=== PATIENT | male | born 1985 | race Caucasian/White ===

== ENCOUNTER 2023-03-05 09:57 | Emergency (ER) | payer SELFPAY ==
[2023-03-05] MEDS ORDERED: Lidocaine 2% Viscous Solution 15 ML UD PO ONE (10:44)
[2023-03-05] MEDS ORDERED: Amoxicillin/Clavulanate K 875-125 MG Tab PO ONE (10:44)
[2023-03-05] MEDS ORDERED: Acetaminophen/oxyCODONE 325-10 MG Tab PO ONE (10:47)
[2023-03-05] MEDS ORDERED: Lidocaine 1% 5 ML VIAL INJECT ONE (10:47)
[2023-03-05] MEDS ORDERED: Benzocaine 20% Topical Spray UD MUCMEM ONE (11:00)
== END 2023-03-05 11:26 | disposition home or self-care (01) ==
LOC: MW.ED 09:57
DX: K04.7 Periapical abscess without sinus (principal)
CPT/HCPCS: 64400; 99282; A9270; 99283; J3490

== ENCOUNTER 2023-11-19 14:10 | Emergency (ER) | payer SELFPAY ==
[2023-11-19] MEDS: LORazepam 0.5 MG Tab PO ONE (14:51)
[2023-11-19 14:52] LABS: BASOPHILS ABSOLUTE AUTO 0.04 K/uL (0.00-0.20); BASOPHILS PERCENT AUTO 0.4 % (0.0-1.0); EOSINOPHILS ABSOLUTE AUTO 0.19 K/uL (0.00-0.45); EOSINOPHILS PERCENT AUTO 1.7 % (0.0-6.0); HEMATOCRIT 50.8 % (42.0-52.0); HEMOGLOBIN 17.2 g/dL (14.0-18.0); IMMATURE GRAN ABSOLUTE AUTO 0.02 K/uL (0.00-0.05); IMMATURE GRAN PERCENT AUTO 0.2 % (0.0-0.4); LYMPHOCYTES PERCENT AUTO 16.3 % (24.0-44.0); MEAN CORPUSCULAR HEMOGLOBIN 29.6 pg (28.0-32.0); MEAN CORPUSCULAR HGB CONC 33.9 g/dL (32.0-36.0); MEAN CORPUSCULAR VOLUME 87.3 fL (83.0-99.0); MONOCYTES ABSOLUTE AUTO 0.55 K/uL (0.00-0.80); NEUTROPHILS ABSOLUTE AUTO 8.44 K/uL (1.80-7.70); NEUTROPHILS PERCENT AUTO 76.4 % (41.0-71.0); PLATELET COUNT,PLT 206 K/uL (150-400); RED BLOOD CELL COUNT 5.82 M/uL (4.52-5.90); WHITE BLOOD CELL COUNT,WBC 11.04 K/uL (3.9-11.3)
[2023-11-19 15:27] LABS: A/G RATIO 1.5 (0.9-1.6); ALANINE AMINOTRANSFERASE,ALT 37 IU/L (14-63); ALBUMIN 4.7 g/dL (3.4-5.0); ALKALINE PHOSPHATASE 124 U/L (46-116); ASPARTATE AMNIOTRANSFERASE,AST 27 IU/L (15-37); BILIRUBIN TOTAL 0.9 mg/dL (0.2-1.0); BLOOD UREA NITROGEN,BUN 9 mg/dL (7.0-18.0); CALCIUM 8.9 mg/dL (8.5-10.1); CARBON DIOXIDE,CO2 28.4 mmol/L (21.0-32.0); CHLORIDE,CL 100 mmol/L (98-107); CREATININE 1.2 mg/dL (0.8-1.3); EST CRCL DRUG DOSING (CG) 78.08 mL/min; GLUCOSE RANDOM 120 mg/dL (74-106); MAGNESIUM 2.3 mg/dL (1.8-2.4); POTASSIUM,K 4.6 mmol/L (3.5-5.1); PROTEIN TOTAL,TP 7.8 g/dL (6.4-8.2); SODIUM,NA 136 mmol/L (136-148); TSH ULTRASENSITIVE 34.34 uIU/mL (0.36-3.74)
[2023-11-19 15:28] LABS: ESTIMATED GFR 80 mL/min (>60)
[2023-11-19 16:07] LABS: T4 FREE 0.47 ng/dL (0.76-1.46)
== END 2023-11-19 16:58 | disposition home or self-care (01) ==
LOC: MW.ED 14:10
DX: R00.2 Palpitations (principal); E03.9 Hypothyroidism, unspecified; Z79.899 Other long term (current) drug therapy; Z75.8 Other problems related to medical facilities and other health care
CPT/HCPCS: 36415; 80053; 83735; 84439; 84443; 84484; 85025; 99284; A9270; 99283